=== PATIENT | female | born 1985 | race African-American/Black ===

== ENCOUNTER 2022-06-04 18:39 | Inpatient (IN) | payer OTHER ==
[~2022-06-04] VITALS: Ht 154.9 cm; Wt 86.4 kg
[2022-06-04 20:32] LABS: Basophils # (auto) 0.1 10 ^3/uL (0-0.2); Basophils % (auto) 0.6 % (0.0-2.0); Eosinophils # (auto) 0.3 10 ^3/uL (0-0.8); Eosinophils % (auto) 2.8 % (0.0-7.0); Hematocrit 27.5 % (36.0-46.0); Hemoglobin 8.6 g/dL (12.2-16.2); INR 0.92 (0.9-1.15); Lymphocytes # (auto) 3.4 10 ^3/uL (0.4-5.4); Lymphocytes % (auto) 32.4 % (10.0-50.0); Mean Corpuscular Hemoglobin 23.3 pg (28.0-32.0); Mean Corpuscular Hgb Conc. 31.1 g/dL (32.0-36.0); Mean Corpuscular Volume 74.9 fL (80.0-100.0); Monocytes # (auto) 0.7 10 ^3/uL (0-1.3); Monocytes % (auto) 6.2 % (0.0-12.0); Neutrophils # (auto) 6.2 10 ^3/uL (1.6-8.6); Red Blood Cells 3.67 10^6/uL (4.0-5.20); White Blood Cell 10.6 10^3/uL (4.4-10.8)
[2022-06-04 20:41] LABS: Alanine Aminotransferase 19 U/L (13-56); Albumin 3.2 g/dL (3.4-5.0); Anion Gap 9 (5-15); Aspartate Aminotransferase 19 U/L (15-37); BUN/Creatinine Ratio 8.6; Blood Alcohol < 3.0 mg/dL (0-5); Blood Urea Nitrogen 6 mg/dL (7-18); Carbon Dioxide 23 mmol/L (21-32); Chloride 108 mmol/L (98-107); GFR African American 121 mL/min; GFR Non-African American 100 mL/min; Glucose 98 mg/dL (74-106); Potassium 4.2 mmol/L (3.5-5.1); Sodium 140 mmol/L (136-145)
[2022-06-04 20:44] LABS: Alkaline Phosphatase 86 U/L (45-117); Bilirubin, Total 0.2 mg/dL (0.2-1.0); Total Protein 6.5 g/dL (6.4-8.2)
[2022-06-04] MEDS ORDERED: IPRATROPIUM BROM 0.5 MG/2.5ML INH SOL NEB ONE (21:30)
[2022-06-04 21:34] LABS: Urine Bacteria MANY /hpf (None Seen); Urine Blood Negative /uL (Negative); Urine Mucus FEW (None Seen); Urine Specific Gravity 1.012 (1.001-1.035); Urine WBC 4 /hpf (0 - 5)
[2022-06-04 21:47] LABS: Alcohol, Urine < 3.0 mg/dL (0-10); Amphetamine Screen, Urine NEGATIVE (NEGATIVE); Barbiturate Scree,Urine NEGATIVE (NEGATIVE); Benzodiazephine Screen, Urine NEGATIVE (NEGATIVE); Cannabinoid Screen, Urine NEGATIVE (NEGATIVE); Cocaine Screen, Urine NEGATIVE (NEGATIVE); Opiate Scree,Urine NEGATIVE (NEGATIVE); Phencyclidine Screen, Urine NEGATIVE (NEGATIVE)
[2022-06-05 00:37] VITALS: BP 112/50
[2022-06-05] MEDS ORDERED: MORPHINE SULFATE INJ 2 MG/ml SYRG IV PRN (01:00)
[2022-06-05] MEDS ORDERED: TEMAZEPAM 15 MG CAP PO PRN (01:00)
[2022-06-05] MEDS ORDERED: HYDROcodone-ACET 5/325MG TAB PO PRN (01:00)
[2022-06-05] MEDS ORDERED: NITROGLYCERIN 0.4 MG SL TAB SL PRN (01:00)
[2022-06-05] MEDS ORDERED: ONDANSETRON HCL 4 MG/2 ML VIAL IV PRN (01:00)
[2022-06-05] MEDS ORDERED: ACETAMINOPHEN 325 MG TAB PO PRN (01:00)
[2022-06-05] MEDS: ALBUTEROL SULF 2.5 MG/0.5ML(0.5%) NEB SOLN NEB PRN ×3 (01:30→18:30)
[2022-06-05 01:59] LABS: % Iron Saturation 10.2 % (15-50)
[2022-06-05 06:49] LABS: Basophils # (auto) 0.1 10 ^3/uL (0-0.2); Hemoglobin 7.9 g/dL (12.2-16.2); Neutrophils # (auto) 5.9 10 ^3/uL (1.6-8.6); Nucleated Red Blood Cells % 0.1 %
[2022-06-05 06:51] LABS: Basophils % (auto) 0.8 % (0.0-2.0); Eosinophils # (auto) 0.4 10 ^3/uL (0-0.8); Eosinophils % (auto) 3.2 % (0.0-7.0); Hematocrit 24.8 % (36.0-46.0); Lymphocytes # (auto) 4.1 10 ^3/uL (0.4-5.4); Lymphocytes % (auto) 36.3 % (10.0-50.0); Mean Corpuscular Hemoglobin 23.5 pg (28.0-32.0); Mean Corpuscular Hgb Conc. 31.8 g/dL (32.0-36.0); Mean Corpuscular Volume 73.9 fL (80.0-100.0); Monocytes # (auto) 0.9 10 ^3/uL (0-1.3); Monocytes % (auto) 7.7 % (0.0-12.0); Red Blood Cells 3.35 10^6/uL (4.0-5.20); Red Cell Distribution Width 16.6 % (11.8-14.3); White Blood Cell 11.3 10^3/uL (4.4-10.8)
[2022-06-05 07:10] LABS: Albumin 2.9 g/dL (3.4-5.0); Potassium 3.5 mmol/L (3.5-5.1)
[2022-06-05 07:16] LABS: BUN/Creatinine Ratio 8.8; Bilirubin, Total 0.2 mg/dL (0.2-1.0); Total Protein 6.2 g/dL (6.4-8.2)
[2022-06-05] MEDS: PANTOPRAZOLE 40 MG TAB PO SCH (10:46)
[2022-06-05 21:40] VITALS: BP 118/67
[2022-06-05 22:00] VITALS: BP 118/67
[2022-06-06 05:00] VITALS: BP 100/61
[2022-06-06 06:16] LABS: Basophils # (auto) 0.1 10 ^3/uL (0-0.2); Basophils % (auto) 0.8 % (0.0-2.0); Eosinophils # (auto) 0.3 10 ^3/uL (0-0.8); Mean Corpuscular Volume 74.2 fL (80.0-100.0); Monocytes # (auto) 0.8 10 ^3/uL (0-1.3); Neutrophils % (auto) 48.9 % (37.0-80.0)
[2022-06-06 06:20] LABS: Eosinophils % (auto) 3.4 % (0.0-7.0); Hematocrit 24.3 % (36.0-46.0); Lymphocytes # (auto) 3.7 10 ^3/uL (0.4-5.4); Lymphocytes % (auto) 38.8 % (10.0-50.0); Mean Corpuscular Hemoglobin 24.4 pg (28.0-32.0); Mean Corpuscular Hgb Conc. 32.9 g/dL (32.0-36.0); Monocytes % (auto) 8.1 % (0.0-12.0); Neutrophils # (auto) 4.7 10 ^3/uL (1.6-8.6); Red Blood Cells 3.28 10^6/uL (4.0-5.20); Red Cell Distribution Width 16.9 % (11.8-14.3); White Blood Cell 9.5 10^3/uL (4.4-10.8)
[2022-06-06 06:33] LABS: BUN/Creatinine Ratio 9.7; Calcium 8.1 mg/dL (8.5-10.1); Potassium 3.9 mmol/L (3.5-5.1)
[2022-06-06 07:40] VITALS: BP 105/47
[2022-06-06 08:13] VITALS: BP 105/47
[2022-06-06] MEDS: PANTOPRAZOLE 40 MG TAB PO SCH (10:00)
[2022-06-06] MEDS ORDERED: FERR1TAB36 PO (10:42)
[2022-06-06 10:44] VITALS: BP 105/47
== END 2022-06-06 11:35 | disposition home or self-care (01) | DRG 812 ==
LOC: ER 18:39 → EDBD 18:39 → TELE 06-05 00:58 → TELE-CENTR 06-05 21:09
PROVIDERS: ADMIT Nurse Practitioner; ATTEND Internal Medicine Pulmonary Disease
DX: D62 Acute posthemorrhagic anemia (principal); E66.9 Obesity, unspecified; J44.9 Chronic obstructive pulmonary disease, unspecified; R07.89 Other chest pain; R55 Syncope and collapse; Z20.822 Contact with and (suspected) exposure to COVID-19; Z68.36 Body mass index [BMI] 36.0-36.9, adult; Z88.1 Allergy status to other antibiotic agents; Z80.0 Family history of malignant neoplasm of digestive organs; Z91.81 History of falling
CPT/HCPCS: 36415; 70450; 80048; 80053; 80307; 80320; 81001; 81025; 82270; 83540; 83550; 84484; 84702; 85025; 85379; 85610; 85730; 93306; 93886; 94640; G0378

== ENCOUNTER 2024-08-27 11:14 | Inpatient (IN) | payer MEDICAID, OTHER ==
[~2024-08-27] VITALS: Ht 167.6 cm; Wt 136.5 kg
[~2024-08-27 11:14] MED LIST: FERR1TAB36 PO
[2024-08-27] MEDS: SODIUM CHLORIDE 0.9% 1,000 ML IV ONE (11:30)
--- NOTE | 2024-08-27 11:56 | ED.PDOC ---
History of Present Illness HPI Comments 39Y F presents to ED via EMS for chief complaint flu-like symptoms x3days. Pt is experiencing weakness, body pains, fatigue, cough, and SOB. Pt denies chest pain. EMS vital signs: BP 122/83, HR 106, Temp 103F, SpO2 95%, RR 20. Chief Complaint: Flu like Time Seen by MD: 11:24 Primary Care Provider: NONE Reviewed Notes: Vehicle Window Tinter Notes, Medications, Allergies Allergies: Coded Allergies: Diphenhydramine (Verified Adverse Reaction, Intermediate, blisters, 08/27/24) Home Meds Active Scripts Ferrous Sulfate (Iron (Ferrous Sulfate)) 50 Mg Tab, 50 MG PO DAILY, #30 TAB Prov:LUIS ALBERTO JOSEPH MD 06/06/22 Information Source: Patient, Emergency Med Personnel Mode of Arrival: EMS Severity: Mild Timing: Days Duration: Since onset Prehospital treatment: None Past Medical History PAST MEDICAL HISTORY: Denies Surgical History: Cholecystectomy, CLIENT INTEGRATION MANAGER History: No Pertinent CLIENT INTEGRATION MANAGER History Family History Family History: Unknown Social History Smoker: Non-Smoker Alcohol: Denies ETOH Use Drugs: Denies Drug Use Lives In: Home Constitutional: reports: fatigue, weakness, others (body aches); denies: chills, diaphoresis, fever, malaise, sweats EENTM: denies: blurred vision, double vision, ear bleeding, ear discharge, ear drainage, ear pain, ear ringing, eye pain, eye redness, hearing loss, mouth pain, mouth swelling, nasal discharge, nose bleeding, nose congestion, nose pain, photophobia, tearing, throat pain, throat swelling, voice changes, others Respiratory: reports: cough, shortness of breath; denies: hemoptysis, orthopnea, SOB at rest, SOB with excertion, stridor, wheezing, others Cardiovascular: denies: chest pain, dizzy spells, diaphoresis, Dyspnea on exertion, edema, irregular heart beat, left arm pain, lightheadedness, palpitations, PND, syncope, others Gastrointestinal: denies: abdomen distended, abdominal pain, blood streaked bowels, constipated, diarrhea, dysphagia, difficulty swallowing, hematemesis, melena, nausea, poor appetite, poor fluid intake, rectal bleeding, rectal pain, vomiting, others Genitourinary: denies: abnormal vagina bleeding, burning, dyspareunia, dysuria, flank pain, frequency, hematuria, incontinence, pain, , vagina discharge, urgency, others Neurological: denies: dizziness, fainting, headache, left sided numbness, left sided weakness, numbness, paresthesia, pre-existing deficit, right sided numbness, right sided weakness, seizure, speech problems, tingling, tremors, weakness, others Musculoskeletal: denies: back pain, gout, joint pain, joint swelling, muscle pain, muscle stiffness, neck pain, others Integumetry: denies: bruises, change in color, change in hair/nails, dryness, laceration, lesions, lumps, rash, wounds, others Allergic/Immunocompromised: denies: Difficulty Healing, Frequent Infections, Hives, Itching, others Hematologic/Lymphatic: denies: anemia, blood clots, easy bleeding, easy bruising, swollen glands, others Endocrine: denies: excessive hunger, excessive sweating, excessive thirst, excessive urination, flushing, intolerance to cold, intolerance to heat, unexplained weight gain, unexplained weight loss, others Psychiatric: denies: anxiety, bipolar disorder, depression, hopeless, panic disorder, schizophrenia, sleepless, suicidal, others All Other Systems: Reviewed and Negative Physical Exam General Appearance: Moderate Distress, Normal HEENT: Normal ENT Inspection, Pharynx Normal, TMs Normal Neck: Full Range of Motion, Non-Tender, Normal, Normal Inspection Respiratory: Chest Non-Tender, Lungs Clear, No Accessory Muscle Use, No Respiratory Distress, Normal Breath Sounds Cardiovascular: No Edema, No JVD, No Murmur, No Gallop, Normal Peripheral Pulses, Regular Rate/Rhythm Breast Exam: Deferred Gastrointestinal: No Organomegaly, Non Tender, No Pulsatile Mass, Normal Bowel Sounds, Soft Genitalia: Deferred Pelvic: Deferred Rectal: Deferred Extremities: No calf tenderness, Normal capillary refill, Normal inspection, Normal range of motion, Non-tender, No pedal edema Musculoskeletal : Apperance: Normal Neurologic: Alert, senior game designer II-XII nml as Tested, No Motor Deficits, Normal Affect, Normal Mood, No Sensory Deficits Cerebellar Function: Normal Reflexes: Normal Skin: Dry, Normal Color, Warm Peripheral Pulses: 3+ Radial (R), 3+ Radial (L) Lymphatic: No Adenopathy Was a procedure done? Was a procedure done?: No Differential Dx Considerations may include: influenza Respiratory tract infection X-Ray, Labs, Meds, VS Vital Signs Date Time Temp Pulse Resp B/P (MAP) Pulse Ox O2 Delivery O2 Flow Rate FiO2 08/27/24 15:24 98.4 98.4 08/27/24 14:49 100.7 08/27/24 13:40 117 20 94 Room Air 08/27/24 13:40 102.2 117 20 151/81 (104) 94 102.2 08/27/24 13:37 103.0 08/27/24 13:35 103.0 08/27/24 11:34 103.0 106 20 122/83 (96) 95 08/27/24 11:33 103.0 106 20 122/83 (96) 95 103.0 Lab Test 08/27/24 13:36 08/27/24 13:34 08/27/24 11:50 Range/Units Influenza Type A Antigen Positive Negative Influenza Type B Antigen Negative Negative SARS-CoV-2 Antigen (Rapid) Negative NEGATIVE Urine Color Yellow Yellow Urine Clarity Turbid H Clear Urine pH 5.5 5.0-9.0 Urine Specific [place] 1.028 1.001-1.035 Urine Protein 1+ H Negative Urine Ketones 1+ H Negative Urine Blood Negative Negative /uL Urine Nitrite Negative Negative Urine Bilirubin Negative Negative Urine Urobilinogen Normal Negative mg/dL Urine Leukocyte Esterase Negative Negative /uL Urine RBC 2 0 - 4 /hpf Urine WBC 5 0 - 5 /hpf Urine Squamous Epithelial Cells Few <5 /hpf Urine Bacteria Few H None Seen /hpf Urine Hyaline Casts Few 0 - 2 /lpf Urine Mucus Few None Seen Urine Glucose Normal Normal mg/dL White Blood Count 6.2 4.4-10.8 10^3/uL Red Blood Count 3.90 L 4.0-5.20 10^6/uL Hemoglobin 8.7 L 12.2-16.2 g/dL Hematocrit 28.8 L 36.0-46.0 % Mean Corpuscular Volume 73.7 L 80.0-100.0 fL Mean Corpuscular Hemoglobin 22.3 L 28.0-32.0 pg Mean Corpuscular Hemoglobin Concent 30.3 L 32.0-36.0 g/dL Red Cell Distribution Width 17.7 H 11.8-14.3 % Platelet Count 199 140-450 10^3/uL Mean Platelet Volume 9.5 6.9-10.8 fL Neutrophils (%) (Auto) 70.8 37.0-80.0 % Lymphocytes (%) (Auto) 15.4 10.0-50.0 % Monocytes (%) (Auto) 13.0 H 0.0-12.0 % Eosinophils (%) (Auto) 0.2 0.0-7.0 % Basophils (%) (Auto) 0.6 0.0-2.0 % Neutrophils # (Auto) 4.4 1.6-8.6 10 ^3/uL Lymphocytes # (Auto) 1.0 0.4-5.4 10 ^3/uL Monocytes # (Auto) 0.8 0-1.3 10 ^3/uL Eosinophils # (Auto) 0 0-0.8 10 ^3/uL Basophils # (Auto) 0 0-0.2 10 ^3/uL Nucleated Red Blood Cells 0.2 % Sodium Level 134 L 136-145 mmol/L Potassium Level 3.7 3.5-5.1 mmol/L Chloride Level 105 98-107 mmol/L Carbon Dioxide Level 20 20-31 mmol/L Anion Gap 9 5-15 Blood Urea Nitrogen 7 L 9-23 mg/dL Creatinine 0.94 0.550-1.02 mg/dL Glomerular Filtration Rate Calc 79 >90 mL/min BUN/Creatinine Ratio 7.4 L 10.0-20.0 Serum Glucose 91 74-106 mg/dL Calcium Level 8.9 8.7-10.4 mg/dL Acetaminophen Level < 2.0 L 10.0-20.0 UG/ML Current Medications Medications (Trade) Dose Ordered Sig/Edgar Route Start Time Stop Time Status Last Admin Sodium Chloride 1,000 ml @ 1,000 mls/hr Q1H ONCE IV 08/27/24 11:30 08/27/24 12:29 DC 08/27/24 11:30 Ondansetron HCl (Zofran) 4 mg PRN ONCE IV 08/27/24 13:30 08/27/24 13:31 DC 08/27/24 13:33 Acetaminophen (Tylenol Tablet Or Capsule) 1,000 mg ONCE ONCE PO 08/27/24 13:45 08/27/24 13:46 DC 08/27/24 13:37 Ceftriaxone Sodium 50 ml @ 100 mls/hr ONCE ONCE IV 08/27/24 15:45 08/27/24 16:14 DC 08/27/24 16:27 Sodium Chloride 1,000 ml @ 60 mls/hr [id number] IV 08/27/24 16:00 08/27/24 16:00 Chest XR: FINDINGS: Lines and Tubes: None Lungs: No focal consolidation. Pleura: No effusion. No pneumothorax. Cardiomediastinal contours: Unremarkable Bones: No acute osseous abnormality. IMPRESSION: 1. No acute cardiopulmonary disease. Patient alert. Complaining of generalized symptoms. Good lung expansion. Vitals stable. Has fever. Generalized body aches. Possible early pneumonia. Hemoglobin is low. UA shows ketones. Establish intravenous access. Was given fluids. Was given Rocephin. Explained to the patient. Continue cardiac monitoring. Images Reviewed?: Images reviewed and evaluated by me Time of 1ST Reevaluation: 11:54 Reevaluation 1ST: Unchanged Time of 2ND Reevaluation: 15:36 Reevaluation 2ND: Improved Patient Education/Counseling: Diagnosis, Treatment Family Education/Counseling: No Family Present Departure 1 Departure Time of Disposition: 15:38 Impression: Primary Impression: Pneumonitis Disposition: ADMITTED INPATIENT Admit to: Med Surg Condition: Guarded Critical Care Note Critical Care Time?: Yes (45 min-critical care time only) Stability Stability form required: No Heart Score Heart Score: Heart Score Response (Comments) Value History N/A 0 EKG N/A 0 Age N/A 0 Risk Factors N/A 0 Troponin N/A 0 Total 0 I personally scribed for MESERET GERMAIN MD ([email or web address]) on 08/27/24 at 11:56. Electronically submitted by Clari Nix ([email or web address]). I personally scribed for MESERET GERMAIN MD ([email or web address]) on 08/27/24 at 13:28. Electronically submitted by Marcelo Ervin ([email or web address]). I personally scribed for MESERET GERMAIN MD ([email or web address]) on 08/27/24 at 13:31. Electronically submitted by Michelle De La Garza ([email or web address]). I personally scribed for MESERET GERMAIN MD ([email or web address]) on 08/27/24 at 14:05. Electronically submitted by iMchelle De La Garza ([email or web address]). I personally scribed for MESERET GERMAIN MD ([email or web address]) on 08/27/24 at 14:31. Electronically submitted by Clari Nix ([email or web address]). I personally scribed for MESERET GERMAIN MD ([email or web address]) on 08/27/24 at 17:07. Electronically submitted by Michelle De La Garza ([email or web address]). MESERET GERMAIN MD Aug 27, 2024 11:56
[2024-08-27 12:02] LABS: Basophils # (auto) 0 10 ^3/uL (0-0.2); Eosinophils # (auto) 0 10 ^3/uL (0-0.8); Monocytes # (auto) 0.8 10 ^3/uL (0-1.3)
[2024-08-27 12:05] LABS: Basophils % (auto) 0.6 % (0.0-2.0); Eosinophils % (auto) 0.2 % (0.0-7.0); Hematocrit 28.8 % (36.0-46.0); Hemoglobin 8.7 g/dL (12.2-16.2); Lymphocytes % (auto) 15.4 % (10.0-50.0); Mean Corpuscular Hemoglobin 22.3 pg (28.0-32.0); Mean Corpuscular Hgb Conc. 30.3 g/dL (32.0-36.0); Mean Corpuscular Volume 73.7 fL (80.0-100.0); Neutrophils # (auto) 4.4 10 ^3/uL (1.6-8.6); Neutrophils % (auto) 70.8 % (37.0-80.0); Nucleated Red Blood Cells % 0.2 %; Platelet Count (auto) 199 10^3/uL (140-450); Red Cell Distribution Width 17.7 % (11.8-14.3); White Blood Cell 6.2 10^3/uL (4.4-10.8)
[2024-08-27 12:12] LABS: Chloride 105 mmol/L (98-107); Potassium 3.7 mmol/L (3.5-5.1)
[2024-08-27 12:13] LABS: Anion Gap 9 (5-15); Calcium 8.9 mg/dL (8.7-10.4); Carbon Dioxide 20 mmol/L (20-31)
[2024-08-27 12:18] LABS: BUN/Creatinine Ratio 7.4 (10.0-20.0); Glucose 91 mg/dL (74-106)
[2024-08-27 12:21] LABS: Blood Urea Nitrogen 7 mg/dL (9-23); Sodium 134 mmol/L (136-145)
--- NOTE | 2024-08-27 12:33 | DVH ---
CHEST RADIOGRAPH Indication: sob Technique: Single frontal view of the chest was obtained Comparison: None FINDINGS: Lines and Tubes: None Lungs: No focal consolidation. Pleura: No effusion. No pneumothorax. Cardiomediastinal contours: Unremarkable Bones: No acute osseous abnormality. IMPRESSION: 1. No acute cardiopulmonary disease.
[2024-08-27] MEDS: ONDANSETRON HCL 4 MG/2 ML VIAL IV ONE (13:33)
[2024-08-27] MEDS: ACETAMINOPHEN 325 MG TAB PO ONE (13:35)
[2024-08-27] MEDS: ACETAMINOPHEN 500 MG TAB or CAP PO ONE (13:37)
[2024-08-27 14:48] LABS: COVID19 ANTIGEN SOFIA FIA NEGATIVE (NEGATIVE)
[2024-08-27 14:50] LABS: Urine Bacteria FEW /hpf (None Seen); Urine Blood Negative /uL (Negative); Urine Clarity Turbid (Clear); Urine Color Yellow (Yellow); Urine Hyaline Cast FEW /lpf (0 - 2); Urine Mucus FEW (None Seen); Urine Protein, UAD 1+ (Negative); Urine Specific Gravity 1.028 (1.001-1.035); Urine Urobilinogen Normal (Negative); Urine WBC 5 /hpf (0 - 5); Urine pH 5.5 (5.0-9.0)
[2024-08-27 14:52] LABS: Rapid Influenza A Positive (Negative); Rapid Influenza B Negative (Negative)
[2024-08-27] MEDS ORDERED: IBUPROFEN 400 MG TAB PO ONE (15:30)
[2024-08-27] MEDS ORDERED: ACETAMINOPHEN 325 MG TAB PO PRN (16:00)
[2024-08-27] MEDS: SODIUM CHLORIDE 0.9% 1,000 ML IV SCH (16:00)
[2024-08-27] MEDS ORDERED: ALBUTEROL SULF 2.5 MG/0.5ML(0.5%) NEB SOLN NEB PRN (16:15)
[2024-08-27] MEDS ORDERED: IPRATROPIUM BROM 0.5 MG/2.5ML INH SOL NEB PRN (16:15)
--- NOTE | 2024-08-27 16:23 | DVHHP2 ---
History of Present Illness Reason for Visit: Cough, shortness of breath, nausea, vomiting, diarrhea, weakness, body History of Present Illness Jamia Trevino is a 39-year-old female with past medical history of COPD, asthma, anemia, cholecystectomy, and who presents to the ED with flu- like symptoms: Nausea, vomiting, diarrhea, weakness, body pain, fatigue, cough, and shortness of breath x3 days. Patient states that she takes iron supplements nothing else. Patient denies chills, chest pain, abdominal pain, lightheadedness, and dizziness. Pulmonary: Asthma, COPD Heme/Onc: Anemia NOS Past Surgical History: Cholecystectomy, Family History: Cancer, Other (Dad with pancreatic cancer) Smoke: <1 pack per day ALCOHOL: occassional Drugs: None Lives: with Family Domestic Violence: Neg Review of Systems Constitutional: Yes: Weakness, Other (Myalgia and fatigue); No: Fever, Chills, Sweats, Malaise Eyes: No: Pain, Vision change, Conjunctivae inflammation, Eyelid inflammation, Other, Redness ENT: No: Ear pain, Ear discharge, Nose pain, Nose discharge, Nose congestion, Mouth pain, Mouth swelling, Throat pain, Throat swelling, Other Respiratory: Cough, Shortness of breath; No: Dry, SOB with excertion, Wheezing, Hemoptysis, Pleuritic Pain, Sputum, Wheezing, Other Cardiovascular: No: Chest Pain, Palpitations, Orthopnea, Paroxysmal Noc. Dyspnea, Edema, Lt Headedness, Other Gastrointestinal: Nausea, Vomiting, Diarrhea; No: Abdominal Pain, Constipation, Melena, Hematochezia, Other Genitourinary: No Dysuria, No Frequency, No Incontinence, No Hematuria, No Retention, No Other Musculoskeletal: No: other, neck pain, shoulder pain, arm pain, back pain, hand pain, leg pain, foot pain Skin: No: Rash, Lesions, Jaundice, Bruising, Other Neurological: No: Weakness, Numbness, Incoordination, Change in speech, Confusion, Seizures, Other Allergies: Coded Allergies: Diphenhydramine (Verified Adverse Reaction, Unknown, 06/05/22) Exam Vital Signs Vital Signs Date Time Temp Pulse Resp B/P (MAP) Pulse Ox O2 Delivery O2 Flow Rate FiO2 08/27/24 15:24 98.4 98.4 08/27/24 13:40 117 20 94 Room Air 08/27/24 13:40 151/81 (104) General Appearance: Alert, Oriented X3, Cooperative, No acute distress HEENT: Atraumatic, PERRLA, EOMI, Mucous membr. moist/pink Respiratory: Normal air movement Cardiovascular: Regular rate, Normal S1, Normal S2, No murmurs Abdominal: Normal bowel sounds, Soft, No tenderness, No hepatospenomegaly, No masses Extremities: No clubbing, No cyanosis, No edema, Normal pulses, No tenderness/swelling Skin: No rashes, No breakdown, No significant lesion Neuro: Normal gait, Normal speech, Strength at 5/5 X4 ext, Normal tone, Sensation intact Psych/Mental Status: Mental status NL, Mood NL Labs/Xrays Labs Test 08/27/24 13:36 08/27/24 13:34 08/27/24 11:50 Range/Units Influenza Type A Antigen Positive Negative Influenza Type B Antigen Negative Negative SARS-CoV-2 Antigen (Rapid) Negative NEGATIVE Urine Color Yellow Yellow Urine Clarity Turbid H Clear Urine pH 5.5 5.0-9.0 Urine Specific [place] 1.028 1.001-1.035 Urine Protein 1+ H Negative Urine Ketones 1+ H Negative Urine Blood Negative Negative /uL Urine Nitrite Negative Negative Urine Bilirubin Negative Negative Urine Urobilinogen Normal Negative mg/dL Urine Leukocyte Esterase Negative Negative /uL Urine RBC 2 0 - 4 /hpf Urine WBC 5 0 - 5 /hpf Urine Squamous Epithelial Cells Few <5 /hpf Urine Bacteria Few H None Seen /hpf Urine Hyaline Casts Few 0 - 2 /lpf Urine Mucus Few None Seen Urine Glucose Normal Normal mg/dL White Blood Count 6.2 4.4-10.8 10^3/uL Red Blood Count 3.90 L 4.0-5.20 10^6/uL Hemoglobin 8.7 L 12.2-16.2 g/dL Hematocrit 28.8 L 36.0-46.0 % Mean Corpuscular Volume 73.7 L 80.0-100.0 fL Mean Corpuscular Hemoglobin 22.3 L 28.0-32.0 pg Mean Corpuscular Hemoglobin Concent 30.3 L 32.0-36.0 g/dL Red Cell Distribution Width 17.7 H 11.8-14.3 % Platelet Count 199 140-450 10^3/uL Mean Platelet Volume 9.5 6.9-10.8 fL Neutrophils (%) (Auto) 70.8 37.0-80.0 % Lymphocytes (%) (Auto) 15.4 10.0-50.0 % Monocytes (%) (Auto) 13.0 H 0.0-12.0 % Eosinophils (%) (Auto) 0.2 0.0-7.0 % Basophils (%) (Auto) 0.6 0.0-2.0 % Neutrophils # (Auto) 4.4 1.6-8.6 10 ^3/uL Lymphocytes # (Auto) 1.0 0.4-5.4 10 ^3/uL Monocytes # (Auto) 0.8 0-1.3 10 ^3/uL Eosinophils # (Auto) 0 0-0.8 10 ^3/uL Basophils # (Auto) 0 0-0.2 10 ^3/uL Nucleated Red Blood Cells 0.2 % Sodium Level 134 L 136-145 mmol/L Potassium Level 3.7 3.5-5.1 mmol/L Chloride Level 105 98-107 mmol/L Carbon Dioxide Level 20 20-31 mmol/L Anion Gap 9 5-15 Blood Urea Nitrogen 7 L 9-23 mg/dL Creatinine 0.94 0.550-1.02 mg/dL Glomerular Filtration Rate Calc 79 >90 mL/min BUN/Creatinine Ratio 7.4 L 10.0-20.0 Serum Glucose 91 74-106 mg/dL Calcium Level 8.9 8.7-10.4 mg/dL Acetaminophen Level < 2.0 L 10.0-20.0 UG/ML CHEST RADIOGRAPH Indication: sob Technique: Single frontal view of the chest was obtained Comparison: None FINDINGS: Lines and Tubes: None Lungs: No focal consolidation. Pleura: No effusion. No pneumothorax. Cardiomediastinal contours: Unremarkable Bones: No acute osseous abnormality. IMPRESSION: 1. No acute cardiopulmonary disease. Assessment/Plan Assessment/Plan Assessment/Plan: Influenza Ketones labs cxr IV Abx given by ER tamiflu ua drug tox antipyretics Antiemetics Pain management COPD Chronic asthma Respiratory treatments FEN/PPX diet ivf DVT prophylaxis not indicated patient ambulating PD prophylaxis not indicated no history of GI bleed or GERD Discussed plan of care with patient and nurse [facility] Home medications reconciled Plan discussed with: Patient My Orders Orders - ZULEYKA IRVING Procedure Category Date Status Time Oseltamivir 30mg PHA 08/27/24 Verified Capsule (Tamiflu 30mg 22:00 Admit ADMIT 08/27/24 Verified 15:55 Allergies ISATU 08/27/24 Verified 15:55 Code Status CODE 08/27/24 Verified 15:55 0.9% Ns 1000 Ml PHA 08/27/24 Verified 16:00 Hydrocodone-Acet PHA 08/27/24 Verified 5/325mg Tab ([place] 16:00 Ondansetron Hcl PHA 08/27/24 Verified (Zofran) 16:00 Zinc Sulfate PHA 08/28/24 Verified 10:00 Multiple Vitamin PHA 08/28/24 Verified Tablet (Mvi Tab) 10:00 Complete Blood Count LAB 08/28/24 Verified 04:00 Comprehensive LAB 08/28/24 Verified Metabolic Panel 04:00 Cardiac DIET 08/27/24 Verified Diet-2gna,Lofat,Lochol Dinner Acetaminophen Tablet PHA 08/27/24 Verified (Tylenol Tablet) 16:00 Morphine Sulfate PHA 08/27/24 Verified Injection 16:00 (Nf) Ferrous Sulfate PHA 08/28/24 Verified (Iron (Ferrous Sulf 10:00 Date of Service: Aug 27, 2024 Billing Provider: ZULEYKA IRVING Common Visit Codes: [id number] INP/OBS CARE (HIGH) ZULEYKA IRVING Aug 27, 2024 16:23
[2024-08-27] MEDS: cefTRIAXone 1GM/50ML D5W 50 ML IV ONE (16:27)
[2024-08-27] MEDS: HYDROcodone-ACET 5/325MG TAB PO PRN (18:13)
--- NOTE | 2024-08-27 18:19 | ECG ---
[facility] Test Date: 2024-08-27 Test Time: 18:04:53 Pat Name: LYDIA AMEZCUA Department: er Room: [address] [place] [address] A Gender: F Student Life Coordinator: shabnam : 1985 Requested By: MESERET GERMAIN Order Number: [id number] Reading MD: Blake Carrion Measurements Intervals [place] Rate: 95 P: 69 UT: 162 QRS: 55 QRSD: 75 T: 30 QT: 353 QTc: 444 Interpretive Statements Sinus rhythm Probable left atrial enlargement Low voltage, precordial leads Electronically Signed On 08-27-2024 18:42:20 PST by Blake Carrion Please click the below link to view image of tracing.
[2024-08-27 19:29] VITALS: PULSE 85; RESP 18; O2SAT 98
[2024-08-27] MEDS: ALBUTEROL SULF 2.5 MG/0.5ML(0.5%) NEB SOLN NEB SCH (19:29)
[2024-08-27] MEDS: IPRATROPIUM BROM 0.5 MG/2.5ML INH SOL NEB SCH (19:29)
[2024-08-27 19:35] VITALS: PULSE 83; RESP 20; O2SAT 98
[2024-08-27] MEDS: OSELTAMIVIR 30 MG CAP PO SCH (20:20)
[2024-08-27] MEDS: ONDANSETRON HCL 4 MG/2 ML VIAL IV PRN (21:22)
[2024-08-27] MEDS: MORPHINE SULFATE INJ 2 MG/ml SYRG IV PRN (21:22)
[2024-08-28 03:06] VITALS: BP 104/67; PULSE 83; RESP 14; TEMP 98.6; O2SAT 98
[2024-08-28 05:27] LABS: Basophils # (auto) 0 10 ^3/uL (0-0.2); Eosinophils # (auto) 0 10 ^3/uL (0-0.8); Mean Corpuscular Hemoglobin 22.5 pg (28.0-32.0); Monocytes # (auto) 0.7 10 ^3/uL (0-1.3); Neutrophils # (auto) 2.8 10 ^3/uL (1.6-8.6); White Blood Cell 4.6 10^3/uL (4.4-10.8)
[2024-08-28 05:30] LABS: Basophils % (auto) 0.5 % (0.0-2.0); Hemoglobin 8.3 g/dL (12.2-16.2); Lymphocytes # (auto) 1.1 10 ^3/uL (0.4-5.4); Lymphocytes % (auto) 22.7 % (10.0-50.0); Mean Corpuscular Hgb Conc. 30.9 g/dL (32.0-36.0); Mean Corpuscular Volume 72.9 fL (80.0-100.0); Monocytes % (auto) 15.8 % (0.0-12.0); Nucleated Red Blood Cells % 0.1 %; Platelet Count (auto) 170 10^3/uL (140-450)
[2024-08-28 05:52] LABS: Alanine Aminotransferase 28 U/L (7-40); Albumin 4.4 g/dL (3.2-4.8); Alkaline Phosphatase 101 U/L (46-116); Anion Gap 8 (5-15); BUN/Creatinine Ratio 11.4 (10.0-20.0); Blood Urea Nitrogen 12 mg/dL (9-23); Carbon Dioxide 23 mmol/L (20-31); Chloride 104 mmol/L (98-107); Potassium 4.3 mmol/L (3.5-5.1); Total Protein 7.1 g/dL (5.7-8.2)
[2024-08-28 06:03] LABS: Aspartate Aminotransferase 53 U/L (13-40); Bilirubin, Total 0.2 mg/dL (0.2-1.0); Glucose 107 mg/dL (74-106); Sodium 135 mmol/L (136-145)
[2024-08-28 06:10] VITALS: O2SAT 97
[2024-08-28] MEDS: cefTRIAXone 1GM/50ML D5W 50 ML IV SCH (09:27)
[2024-08-28] MEDS: FERROUS SULFATE 50 MG PO SCH (10:38)
[2024-08-28] MEDS: MULTIPLE VITAMIN TAB PO SCH (10:51)
[2024-08-28] MEDS: ZINC SULFATE 220mg CAP or TAB PO SCH (10:51)
[2024-08-28] MEDS ORDERED: TAMIFLU PO (12:12)
--- NOTE | 2024-08-28 12:16 | DVHDS2 ---
Discharge Summary Date of Admission Aug 27, 2024 at 15:55 Date of Discharge: Aug 28, 2024 Admitting Diagnosis Influenza a Labs/Diagnostic Data: Laboratory Results Test 08/28/24 04:47 08/27/24 13:36 08/27/24 13:34 08/27/24 11:50 White Blood Count 4.6 10^3/uL (4.4-10.8) Red Blood Count 3.70 10^6/uL (4.0-5.20) Hemoglobin 8.3 g/dL (12.2-16.2) Hematocrit 27.0 % (36.0-46.0) Mean Corpuscular Volume 72.9 fL (80.0-100.0) Mean Corpuscular Hemoglobin 22.5 pg (28.0-32.0) Mean Corpuscular Hemoglobin Concent 30.9 g/dL (32.0-36.0) Red Cell Distribution Width 18.0 % (11.8-14.3) Platelet Count 170 10^3/uL (140-450) Mean Platelet Volume 9.6 fL (6.9-10.8) Neutrophils (%) (Auto) 61.0 % (37.0-80.0) Lymphocytes (%) (Auto) 22.7 % (10.0-50.0) Monocytes (%) (Auto) 15.8 % (0.0-12.0) Eosinophils (%) (Auto) 0.0 % (0.0-7.0) Basophils (%) (Auto) 0.5 % (0.0-2.0) Neutrophils # (Auto) 2.8 10 ^3/uL (1.6-8.6) Lymphocytes # (Auto) 1.1 10 ^3/uL (0.4-5.4) Monocytes # (Auto) 0.7 10 ^3/uL (0-1.3) Eosinophils # (Auto) 0 10 ^3/uL (0-0.8) Basophils # (Auto) 0 10 ^3/uL (0-0.2) Nucleated Red Blood Cells 0.1 % Sodium Level 135 mmol/L (136-145) Potassium Level 4.3 mmol/L (3.5-5.1) Chloride Level 104 mmol/L (98-107) Carbon Dioxide Level 23 mmol/L (20-31) Anion Gap 8 (5-15) Blood Urea Nitrogen 12 mg/dL (9-23) Creatinine 1.05 mg/dL (0.550-1.02) Glomerular Filtration Rate Calc 69 mL/min (>90) BUN/Creatinine Ratio 11.4 (10.0-20.0) Serum Glucose 107 mg/dL (74-106) Calcium Level 9.0 mg/dL (8.7-10.4) Total Bilirubin 0.2 mg/dL (0.2-1.0) Aspartate Amino Transferase (AST) 53 U/L (13-40) Alanine Aminotransferase (ALT) 28 U/L (7-40) Alkaline Phosphatase 101 U/L (46-116) Total Protein 7.1 g/dL (5.7-8.2) Albumin 4.4 g/dL (3.2-4.8) Influenza Type A Antigen Positive (Negative) Influenza Type B Antigen Negative (Negative) SARS-CoV-2 Antigen (Rapid) Negative (NEGATIVE) Urine Color Yellow (Yellow) Urine Clarity Turbid (Clear) Urine pH 5.5 (5.0-9.0) Urine Specific [place] 1.028 (1.001-1.035) Urine Protein 1+ (Negative) Urine Ketones 1+ (Negative) Urine Blood Negative /uL (Negative) Urine Nitrite Negative (Negative) Urine Bilirubin Negative (Negative) Urine Urobilinogen Normal mg/dL (Negative) Urine Leukocyte Esterase Negative /uL (Negative) Urine RBC 2 /hpf (0 - 4) Urine WBC 5 /hpf (0 - 5) Urine Squamous Epithelial Cells Few /hpf (<5) Urine Bacteria Few /hpf (None Seen) Urine Hyaline Casts Few /lpf (0 - 2) Urine Mucus Few (None Seen) Urine Glucose Normal mg/dL (Normal) Acetaminophen Level < 2.0 UG/ML (10.0-20.0) Other Laboratory Tests 08/28/24 04:47 Brief Hx & Hospital Course: History of Present Illness Jamia Trevino is a 39-year-old female with past medical history of COPD, asthma, anemia, cholecystectomy, and who presents to the ED with flu- like symptoms: Nausea, vomiting, diarrhea, weakness, body pain, fatigue, cough, and shortness of breath x3 days. Patient states that she takes iron supplements nothing else. Patient denies chills, chest pain, abdominal pain, lightheadedness, and dizziness. Course of Hospitalization: Patient was started on Tamiflu while in the hospital. Initially she was given bronchodilators. Patient was also started with IV hydration. Patient was white blood cell count is normal. Chest x-rays without any infiltrates. Patient was fever of 103 has now been corrected. Patient was agreeable to be discharged home and to continue Tamiflu 75 mg p.o. twice a day for five days. She was instructed take [id number]-[id number] cold and flu medication. She will continue with her iron supplementation for her iron-deficiency anemia. Physical examination General: Alert and Oriented x3. No acute distress. Well-nourished. Obese Eyes: EOMI. Anicteric. HENT: Moist mucous membranes. Lungs: Clear to auscultation bilaterally. No accessory muscle use. Cardiovascular: Regular rate and rhythm. No murmur. No JVD. Abdomen: Soft, non-tender and non-distended. No palpable masses. Extremities: No edema. Non-tender. Skin: No rashes or lesions. Warm. Neurologic: No focal neurological deficits. CN II-XII grossly intact, but not individually tested. Psychiatric: Cooperative. Appropriate mood and affect. Total time spent with patient discussing and formulating plan of care: 35 minutes. This medical document was created using an electronic medical record system with [employer] dictation system. Although this document has been carefully reviewed, there may still be some phonetic and typographical errors. These areas are purely typographical due to imperfections of the software programs, and do not reflect any compromise in the patient's medical care. Condition at Discharge: Fair Final Diagnosis/Problems List Influenza a Secondary Diagnosis: Obesity COPD Asthma Iron-deficiency anemia Discharge Disposition: Home Discharge Instruct/Medications Diet: Regular Activity: No Restrictions, As Tolerated Medications: Tamiflu 75 mg p.o. b.i.d. x5 days 36 Discharge Statement: "Patient was advised to return to the ER or call 911 if any headaches, dizziness, shortness of breath, chest pain, abdominal pain, bleeding, fevers, or worsening of medical condition. Patient was counseled about treatment plan, medications, possible side effects, patientverbalized understanding. All questions were answered to the best of my ability. This discharge took greater then 30 minutes in planning, reviewing documentation, counseling the patient, and discussing with other team members." ASSESSMENT ASSESSMENT Assessment Influenza a Date of Service: Aug 28, 2024 Billing Provider: SHANAE SAMPSON NP Common Visit Codes: 12438-JVW/OBS DISCH DAY >30min SHANAE SAMPSON NP Aug 28, 2024 12:16
[2024-08-28 13:40] VITALS: BP 142/98; PULSE 79; RESP 19; TEMP 98.1; O2SAT 95
[2024-08-28] MEDS ORDERED: OSELTAMIVIR 75 MG CAP PO SCH (22:00)
== END 2024-08-28 13:41 | disposition home or self-care (01) | DRG 113 ==
LOC: EDBD 11:14 → ER 11:14 → OVERFLOW 15:55
DX: J10.1 Influenza due to other identified influenza virus with other respiratory manifestations (principal); D50.9 Iron deficiency anemia, unspecified; J44.89 Other specified chronic obstructive pulmonary disease; J98.4 Other disorders of lung; Z20.822 Contact with and (suspected) exposure to COVID-19; E66.9 Obesity, unspecified; Z90.49 Acquired absence of other specified parts of digestive tract; Z80.0 Family history of malignant neoplasm of digestive organs; Z68.42 Body mass index [BMI] 45.0-49.9, adult
CPT/HCPCS: 36415; 71045; 80048; 80053; 80329; 81001; 85025; 87426; 87804; 93005; 94640; 99291; G0378; G9035; J2405